=== PATIENT | male | born 1965 | race Caucasian/White ===

== ENCOUNTER 2019-03-27 09:25 | Emergency (ER) | payer BC ==
[2019-03-27 09:39] VITALS: PULSE 74; O2SAT 98
--- NOTE | 2019-03-27 09:54 | ERPHSYRPT ---
- History of Present Illness Time Seen by Provider: 03/27/19 09:49 Source: patient Exam Limitations: no limitations Patient Subjective Stated Complaint: pt reports chasing his dogs this morning and stubbing his right fifth toe, pt denies any other injury. pt reports pain with ambulation. Triage Nursing Assessment: pt is aox3, pupils perrl, afebrile, resps easy and non labored, skin pink warm dry. slight swelling noted to the right fifth toe, skin is intact, ROM and sensation intact. pedal pulse strong equal bilat. Physician History: pt stubbed his right 5th toe this am , no other injury- swollen right 5th toe on exam ; neurovasc intact; Method of Injury: direct blow Occurred: this morning Quality: constant, sharpness, throbbing Severity of Pain-Max: moderate Severity of Pain-Current: moderate Lower Extremities Pain: 5th toe: right Modifying Factors: Improves With: movement Associated Symptoms: none Allergies/Adverse Reactions: benzonatate [From [facility]] Adverse Reaction (Verified 03/27/19 09:40) Home Medications: Testosterone Cypionate [Depo-Testosterone] 200 mg IM ONCE 03/27/19 [History] Hx Tetanus, Diphtheria Vaccination/Date Given: Yes Hx Influenza Vaccination/Date Given: No Hx Pneumococcal Vaccination/Date Given: No Immunizations Up to Date: Yes - Review of Systems Constitutional: No Fever, No Chills Eyes: No Symptoms Ears, Nose, & Throat: No Symptoms Respiratory: No Cough, No Dyspnea Cardiac: No Chest Pain, No Edema, No Syncope Abdominal/Gastrointestinal: No Abdominal Pain, No Nausea, No Vomiting, No Diarrhea Genitourinary Symptoms: No Dysuria Musculoskeletal: Injury, Joint Pain, Joint Swelling, No Back Pain, No Neck Pain Skin: No Rash Neurological: No Dizziness, No Focal Weakness, No Sensory Changes Psychological: No Symptoms Endocrine: No Symptoms All Other Systems: Reviewed and Negative - Past Medical History Pertinent Past Medical History: Yes Neurological History: No Pertinent History ENT History: No Pertinent History Cardiac History: No Pertinent History Respiratory History: No Pertinent History Endocrine Medical History: No Pertinent History Musculoskeletal History: No Pertinent History GI Medical History: No Pertinent History History: Other Male Reproductive Disorders: Other Other Medical History: kidney stone, low testosterone - Past Surgical History Past Surgical History: Yes Neuro Surgical History: No Pertinent History Cardiac: No Pertinent History Respiratory: No Pertinent History Gastrointestinal: No Pertinent History Genitourinary: Kidney Surgery Musculoskeletal: No Pertinent History Male Surgical History: No Pertinent History - Social History Smoking Status: Never smoker Exposure to second hand smoke: No Alcohol Use: Socially Drug Use: none Patient Lives Alone: No Significant Family History: no pertinent family hx - Nursing Vital Signs Nursing Vital Signs: Initial Vital Signs Temperature 97.9 F 03/27/19 09:30 Pulse Rate 74 03/27/19 09:30 Respiratory Rate 20 03/27/19 09:30 Blood Pressure 126/85 03/27/19 09:30 O2 Sat by Pulse Oximetry 98 03/27/19 09:30 Pain Scale Pain Intensity 7 - Physical Exam General Appearance: alert Eyes, Ears, Nose, Throat Exam: moist mucous membranes Neck Exam: non-tender, supple Cardiovascular/Respiratory Exam: chest non-tender, normal breath sounds, regular rate/rhythm, no respiratory distress Gastrointestinal/Abdominal Exam: non-tender, guarding Back Exam: normal inspection, No vertebral tenderness Hips Exam: bilateral: non-tender, normal inspection, normal range of motion, no evidence of injury Legs Exam: bilateral leg: non-tender, normal inspection, normal range of motion , no evidence of injury Knees Exam: bilateral knee: non-tender, normal inspection, normal range of motion, no evidence of injury Ankle Exam: bilateral ankle: non-tender, normal inspection, normal range of motion, no evidence of injury Foot Exam: right foot: bone tenderness, pain, soft tissue tenderness, swelling, left foot: non-tender, normal inspection, normal range of motion, no evidence of injury DTR - Lower Extremities Exam: knee (R): 2+, knee (L): 2+, ankle (R): 2+, ankle ( L): 2+ Neuro/Tendon Exam: normal sensation, normal motor functions, no evidence tendon injury Mental Status Exam: alert, oriented x 3, cooperative Skin Exam: normal color, warm, dry SpO2 Interpretation: normal SpO2: 98 O2 Delivery: Room Air Procedures - Splinting Location of Splint: Right, Foot Type of Splint: Walking Boot/Shoe Splint Applied By: ED Nurse Pre-Proc Neuro Vasc Exam: normal Post-Proc Neuro Vasc Exam: neurovascular intact, unchanged from pre-exam - Course Nursing assessment & vital signs reviewed: Yes - Radiology Exams Right Foot X-ray Interpretation: Reviewed by me, Non-displaced Fracture Ordered Tests: Active Orders 24 hr Category Date Time Status FOOT (MINIMUM 3 VIEWS) Stat Exams 03/27/19 09:54 Ordered - Progress Progress: improved, re-examined Counseled pt/family regarding: diagnosis, need for follow-up, rad results - Departure Departure Disposition: Home Clinical Impression: Fracture of fifth toe, right, closed Condition: Good Critical Care Time: No Referrals: ODELL DUONG [Primary Care Provider] - Instructions: Toe Fracture (DC) Additional Instructions: use walking boot or other comfortable wide shoe, elevated when possible - see thursday for referral or to determine this need; return meantime if any concerns Prescriptions: Hydrocodone/APAP 5-325 Tab^^^ [[place] 5-325 Tablet^^^] 1 tab PO Q6HPRN PRN #10 tablet MDD 6 PRN Reason: Pain
[2019-03-27 10:52] VITALS: BP 117/73
--- NOTE | 2019-03-27 20:16 | XRAY ---
Indication: 5th toe pain following injury. Comparison: None 3 nonweightbearing views of the right foot demonstrates nondisplaced 5th proximal phalanx shaft fracture with soft tissue swelling. Elsewhere moderate/advanced 1st MTP degenerative changes and tiny plantar heel spur. Remaining foot unremarkable.
== END 2019-03-27 10:50 | disposition home or self-care (01) ==
LOC: ED 09:25
DX: S92.501A Displaced unspecified fracture of right lesser toe(s), initial encounter for closed fracture (principal); M79.89 Other specified soft tissue disorders; W22.8XXA Striking against or struck by other objects, initial encounter
CPT/HCPCS: 73630; 99283

== ENCOUNTER 2025-07-20 10:15 | Day surgery (SDC) | payer BC ==
[2025-07-20] MEDS ORDERED: CEFAZOLIN SODIUM ONE (11:14)
[2025-07-20] MEDS ORDERED: Lactated Ringers 1,000 ML IV ONE (11:14)
[2025-07-20] MEDS: Lactated Ringers 1,000 ML IV SCH (11:26)
[2025-07-20 11:34] LABS: Hematocrit 40.9 % (40.1-51.0); Hemoglobin 13.5 g/dL (13.7-17.5); Mean Corpuscular Hemoglobin 28.2 pg (25.7-32.2); Mean Corpuscular Hgb Concent. 33.0 g/dL (32.3-36.5); Platelet Count 209 x10^3/uL (163-337); Red Blood Count 4.79 x10^6/uL (4.63-6.08); White Blood Count 7.6 x10^3/uL (4.23-9.07)
[2025-07-20 11:50] LABS: Calcium 8.9 mg/dL (8.4-10.2); Carbon Dioxide 26.0 mmol/L (22-30); Creatinine 1 0.88 mg/dL (0.66-1.25); EST GLOMERULAR FILTRATION RATE 100.3 ML/MIN; Glucose 96.0 mg/dL (74-106); Potassium 4.1 mmol/L (3.5-5.1); SGOT/AST 34.0 U/L (17-59); SGPT/ALT 36.0 U/L (0-50); Total Protein 7.8 g/dL (6.3-8.2)
[2025-07-20] MEDS ORDERED: Xylocaine-Mpf 2% 5 Ml Vial ONE (12:42)
[2025-07-20] MEDS ORDERED: SUBLIMAZE 100 MCG/2 ML ONE (12:42)
[2025-07-20] MEDS ORDERED: propofoL IV ONE (12:42)
[2025-07-20] MEDS ORDERED: Versed 2 MG/2 ML Injection ONE (12:42)
[2025-07-20] MEDS ORDERED: Zofran 4 MG/2 ML VIAL ONE (12:42)
[2025-07-20] MEDS ORDERED: XYLOCAINE 1% HCL 20 ML MDV ONE (12:57)
[2025-07-20] MEDS ORDERED: Marcaine Mpf 0.5% Vial 30 Ml ONE (12:57)
[2025-07-20] MEDS ORDERED: BACIGUENT 30 GM ONE (13:04)
[2025-07-20 13:49] VITALS: BP 147/97; PULSE 71; RESP 16; TEMP 97.2; O2SAT 97
--- NOTE | 2025-07-21 16:36 | OP ---
SURGERY DATE/TIME: 07/20/2025 [id number] PREOPERATIVE DIAGNOSES: 1) Mucoid cyst left 2nd digit distal interphalangeal joint. 2) Left foot pain. POSTOPERATIVE DIAGNOSES: 1) Mucoid cyst left 2nd digit distal interphalangeal joint. 2) Left foot pain. PROCEDURE: Excision of mucoid cyst, left 2nd digit. SURGEON: Alejandro Noriega DPM CODE OFFICIAL: None. HEMOSTASIS: Pressure dressing. ESTIMATED BLOOD LOSS: Approximately 2 mL. MATERIALS: None. ANESTHESIA: Monitored anesthesia care. INDICATIONS FOR PROCEDURE: The patient is a very pleasant 59-year-old male who presented to my service with concerns of a cyst over the 2nd digit of the left foot that had been present for a number of years. From that standpoint, this does cause him some discomfort. He does wish to have the soft tissue mass removed. On clinical appearance, it did appear to be a ganglion versus mucoid cyst. From that standpoint, discussion was held regarding recurrence and aggressive excision lessens the likelihood of recurrence significantly. All risks, complications, and benefits of surgical intervention, including but not limited to, infection, hematoma, seroma, possibility of delayed wound healing, non-wound healing, and possible need for further surgical intervention at a later date was provided. No guarantees were provided as to the outcome of surgical intervention. Plenty of time was allowed for the patient to ask questions which were answered to his apparent satisfaction. It is at this time we decided to proceed. DESCRIPTION OF PROCEDURE AND FINDINGS: Patient was brought into the operating theater and placed on the operating room table in the supine position. Monitored anesthesia care was administered at this time and the patient was adequately sedated. Once the patient was sedated, the left lower extremity was prepped and draped in the typical sterile fashion and lowered on the surgical field. Attention was directed to the mucoid cyst. A curvilinear incision was made. Unfortunately, the skin margins were very thin and attenuated at this time, so a decision to proceed with 15-blade and excision from a dorsal aspect, excising the skin as well was performed. This was handed off the field and sent for pathological assessment. Any stalk that was identified was then cauterized until hemostasis was achieved and no longer any of the capsule of the mucoid cyst was visible. Copious amounts of irrigation took place. Bacitracin ointment was then applied to the wound along with an Adaptic, 2 x 2, and Coban. The patient was then reversed from anesthesia and returned to the postoperative anesthesia care unit with vital signs stable and vascular status intact. The patient handled the anesthesia as well as the procedure without significant complication. Postoperative orders as indicated in the patient's discharge chart.
== END 2025-07-20 14:08 | disposition home or self-care (01) ==
LOC: SDC 10:15
PROVIDERS: ATTEND Podiatrist Foot & Ankle Surgery
DX: M67.472 Ganglion, left ankle and foot (principal); M79.672 Pain in left foot